=== PATIENT | female | born 1930 | race Caucasian/White ===

== ENCOUNTER 2017-09-21 17:13 | Emergency (ER) | payer MEDICARE ==
[2017-09-21 18:26] LABS: ADD MAN DIFF? NO
[2017-09-21 18:28] LABS: BASO # 0.1 x10^3/uL (0.0-0.2); BASO % 1 % (0-3); EOS # 0.2 x10^3/uL (0.0-0.7); EOS % 3 % (0-3); HEMATOCRIT 38.7 % (36.0-47.0); LYMPH # 2.6 x10^3/uL (1.0-4.8); LYMPH % 33 % (24-48); MEAN CORPUSCULAR HEMOGLOBIN 30 pg (25-35); MEAN CORPUSCULAR HGB CONC 34 g/dL (31-37); MEAN CORPUSCULAR VOLUME 91 fL (79-100); MONO # 0.9 x10^3/uL (0.0-1.1); MONO % 12 % (0-9); NEUT # 3.9 x10^3uL (1.8-7.7); NEUT % 51 % (31-73); PLATELET COUNT 212 x10^3/uL (140-400); RED BLOOD COUNT 4.26 x10^6/uL (3.50-5.40); RED CELL DISTRIBUTION WIDTH 13.8 % (11.5-14.5); WHITE BLOOD COUNT 7.8 x10^3/uL (4.0-11.0)
[2017-09-21 18:37] LABS: ANION GAP 9 (6-14); BLOOD UREA NITROGEN 21 mg/dL (7-20); CALCIUM 9.4 mg/dL (8.5-10.1); CARBON DIOXIDE 29 mmol/L (21-32); CHLORIDE 104 mmol/L (98-107); CREATININE 1.2 mg/dL (0.6-1.0); GFR 42.4; GLUCOSE 116 mg/dL (70-99); POTASSIUM 3.8 mmol/L (3.5-5.1); SODIUM 142 mmol/L (136-145)
[2017-09-21] MEDS: LABETALOL 20 MG/4 ML DISP.SYRIN. IVP (18:37)
[2017-09-21 18:45] LABS: TROPONINI < 0.017 ng/mL (0.000-0.055)
[2017-09-21 18:45] LABS: ALBUMIN 3.6 g/dL (3.4-5.0); ALK PHOS 83 U/L (46-116); ALT (SGPT) 18 U/L (14-59); AST (SGOT) 20 U/L (15-37); DIRECT BILIRUBIN 0.1 mg/dL (0.0-0.2); LIPASE 78 U/L (73-393); TOTAL BILIRUBIN 0.4 mg/dL (0.2-1.0); TOTAL PROTEIN 6.9 g/dL (6.4-8.2)
[2017-09-21 18:48] LABS: NT-PRO BNP 536 pg/mL (0-449)
[2017-09-21 19:02] LABS: BILIRUBIN,URINE NEGATIVE (NEG); CLARITY,URINE CLEAR; COLOR,URINE YELLOW; GLUCOSE,URINE NEGATIVE (NEG); NITRITE,URINE NEGATIVE (NEG); PH,URINE 6.5; PROTEIN,URINE NEGATIVE (NEG-TRACE); UROBILINOGEN,URINE 0.2 mg/dL (0.2 mg/dL)
[2017-09-21 19:10] LABS: BACTERIA,URINE 0 /HPF (0-FEW); RBC,URINE 0 /HPF (0-2); SQUAMOUS EPITHELIAL CELL,UR OCC /LPF; WBC,URINE 0 /HPF (0-4)
[2017-09-21 19:59] LABS: LACTIC ACID 1.5 mmol/L (0.4-2.0)
[2017-09-21] MEDS: LISINOPRIL 10 MG TABLET PO (20:35)
== END 2017-09-21 20:48 | disposition home or self-care (01) ==
LOC: ER 17:13
DX: I10 Essential (primary) hypertension (principal); E78.00 Pure hypercholesterolemia, unspecified; Z86.73 Personal history of transient ischemic attack (TIA), and cerebral infarction without residual deficits; Z98.890 Other specified postprocedural states
CPT/HCPCS: 36415; 80048; 80076; 81001; 83605; 83690; 83880; 84484; 85025; 93005; 96374; 99285-25; J3490

== ENCOUNTER 2017-12-24 10:36 | Inpatient (IN) | payer MEDICARE ==
[~2017-12-24] VITALS: Ht 154.9 cm; Wt 73.9 kg
[~2017-12-24 10:36] MED LIST: ALPR0.25 PO; ASPI-612 PO; DILT120C80 PO; DILT240C2 PO; LEVO500T59 PO; LISI10TA2 PO; OLME1TAB25 PO; POLY17PO29 PO; RANI150T2 PO; RANI150T21 PO; SIMV20TA3 PO
[2017-12-24] MEDS ORDERED: IV NORMAL SALINE 500ML BAG 500 ML IV ONE ×2 (11:00→12:15)
--- NOTE | 2017-12-24 11:15 | RAD ---
Chest AP portable at 1059: Reason for examination: Dizziness and shortness of breath today. Comparison is made to previous studies dated 11/03/2017 and 09/11/2017. The heart size is normal. Mediastinum is unremarkable. Lung woodruff continue show some mild interstitial prominence which is unchanged. No acute consolidative infiltrates or pleural effusions are evident. No acute bony abnormalities are seen. Impression: Chronic increase in the interstitial markings. No acute process evident. Electronically signed by: Rosaura Montes MD (12/24/2017 11:11 AM) [facility]
[2017-12-24 11:26] LABS: BASO # 0.1 x10^3/uL (0.0-0.2); BASO % 1 % (0-3); EOS # 0.2 x10^3/uL (0.0-0.7); EOS % 2 % (0-3); HEMATOCRIT 41.3 % (36.0-47.0); HEMOGLOBIN 13.8 g/dL (12.0-15.5); LYMPH # 1.7 x10^3/uL (1.0-4.8); LYMPH % 19 % (24-48); MEAN CORPUSCULAR HEMOGLOBIN 31 pg (25-35); MEAN CORPUSCULAR HGB CONC 34 g/dL (31-37); MEAN CORPUSCULAR VOLUME 91 fL (79-100); MONO # 0.8 x10^3/uL (0.0-1.1); MONO % 9 % (0-9); NEUT # 6.1 x10^3uL (1.8-7.7); NEUT % 70 % (31-73); PLATELET COUNT 218 x10^3/uL (140-400); RED BLOOD COUNT 4.55 x10^6/uL (3.50-5.40); RED CELL DISTRIBUTION WIDTH 13.8 % (11.5-14.5); WHITE BLOOD COUNT 8.8 x10^3/uL (4.0-11.0)
--- NOTE | 2017-12-24 11:28 | PHYS DOC ---
Past Medical History Past Medical History: High Cholesterol, Hypertension, TIA Past Surgical History: Other Additional Past Surgical Histo: left lobe thyroid, lumps bilateral breasts Alcohol Use: None Drug Use: None Adult General Chief Complaint Chief Complaint: NEAR SYNCOPE HPI HPI Patient is a 87 year old female who presents with weakness and dizziness. The patient is an elderly female who lives by herself. The patient states she was recently admitted at [facility] for pneumonia. She estimates this to be 4 weeks earlier. She completed antibiotics following discharge from the hospital. Today, she presents to the ER complaining that she awoke this morning and felt generally weak and had some dizziness. She felt that she might pass out but she did not actually have a syncopal episode. Based on her feelings, the patient called EMS. On arrival to the ER she continues to complain of feeling "shaky." She states that she feels lightheaded still. She denies vertiginous symptoms. She complains of some intermittent shortness of breath. She does not have chest pain. She states she has been eating and drinking normally and having normal bowel movements. No recent additional respiratory symptoms. Review of Systems Review of Systems Constitutional: Denies fever or chills Eyes: Denies change in visual acuity HENT: Denies nasal congestion Respiratory: Denies cough Cardiovascular: No additional information not addressed in HPI GI: Denies abdominal pain Musculoskeletal: Denies back pain or joint pain Integument: Denies rash or skin lesions Neurologic: Denies headache, focal weakness or sensory changes All other systems were reviewed and found to be within normal limits, except as documented in this note. Current Medications Current Medications Current Medications Medications (Trade) Dose Ordered Sig/Leon Start Time Stop Time Status Last Admin Dose Admin Acetaminophen (Tylenol) 650 mg PRN Q4HRS PRN 12/24/17 14:15 12/25/17 14:14 Sodium Chloride 500 ml @ 250 mls/hr 1X ONCE 12/24/17 12:15 12/24/17 14:14 DC 12/24/17 12:45 250 MLS/HR Allergies Allergies Allergies Coded Allergies Type Severity Reaction Last Updated Verified hydralazine Allergy Intermediate Swelling 12/24/17 Yes nifedipine Allergy Intermediate Swelling 12/24/17 Yes Physical Exam Physical Exam Constitutional: frail, elderly female in no acute distress HENT: Normocephalic, atraumatic, bilateral external ears normal, oropharynx moist Eyes: PERRLA, EOMI, conjunctiva conjunctiva Neck: Normal range of motion, no tenderness, no carotid bruits Cardiovascular:Heart rate regular rhythm, no murmur Lungs & Thorax: Bilateral breath sounds clear to auscultation Abdomen: Bowel sounds normal, soft, no tenderness Skin: Warm, dry, no erythema, no rash. Extremities: No tenderness, no edema Neurologic: Alert and oriented X 3, normal motor function, normal sensory function Psychologic: Affect normal Current Patient Data Vital Signs Vital Signs Date Time Temp Pulse Resp B/P (MAP) Pulse Ox O2 Delivery O2 Flow Rate FiO2 12/24/17 10:45 97.9 75 22 191/77 (115) 99 Room Air 97.9 Lab Values Laboratory Tests Test 12/24/17 11:10 12/24/17 12:26 White Blood Count 8.8 x10^3/uL (4.0-11.0) Red Blood Count 4.55 x10^6/uL (3.50-5.40) Hemoglobin 13.8 g/dL (12.0-15.5) Hematocrit 41.3 % (36.0-47.0) Mean Corpuscular Volume 91 fL (79-100) Mean Corpuscular Hemoglobin 31 pg (25-35) Mean Corpuscular Hemoglobin Concent 34 g/dL (31-37) Red Cell Distribution Width 13.8 % (11.5-14.5) Platelet Count 218 x10^3/uL (140-400) Neutrophils (%) (Auto) 70 % (31-73) Lymphocytes (%) (Auto) 19 % (24-48) L Monocytes (%) (Auto) 9 % (0-9) Eosinophils (%) (Auto) 2 % (0-3) Basophils (%) (Auto) 1 % (0-3) Neutrophils # (Auto) 6.1 x10^3uL (1.8-7.7) Lymphocytes # (Auto) 1.7 x10^3/uL (1.0-4.8) Monocytes # (Auto) 0.8 x10^3/uL (0.0-1.1) Eosinophils # (Auto) 0.2 x10^3/uL (0.0-0.7) Basophils # (Auto) 0.1 x10^3/uL (0.0-0.2) Sodium Level 138 mmol/L (136-145) Potassium Level 4.0 mmol/L (3.5-5.1) Chloride Level 101 mmol/L (98-107) Carbon Dioxide Level 31 mmol/L (21-32) Anion Gap 6 (6-14) Blood Urea Nitrogen 24 mg/dL (7-20) H Creatinine 1.3 mg/dL (0.6-1.0) H Estimated GFR (Cockcroft-Gault) 38.7 Glucose Level 170 mg/dL (70-99) H Calcium Level 9.3 mg/dL (8.5-10.1) Troponin I Quantitative < 0.017 ng/mL (0.000-0.055) Urine Collection Type Unknown Urine Color Yellow Urine Clarity Clear Urine pH 6.0 Urine Specific [place] 1.010 Urine Protein Negative mg/dL (NEG-TRACE) Urine Glucose (UA) Negative mg/dL (NEG) Urine Ketones (Stick) Negative mg/dL (NEG) Urine Blood Negative (NEG) Urine Nitrite Negative (NEG) Urine Bilirubin Negative (NEG) Urine Urobilinogen Dipstick 0.2 mg/dL (0.2 mg/dL) Urine Leukocyte Esterase Negative (NEG) Urine RBC 0 /HPF (0-2) Urine WBC 0 /HPF (0-4) Urine Squamous Epithelial Cells Few /LPF Urine Bacteria 0 /HPF (0-FEW) Laboratory Tests 12/24/17 11:10 Laboratory Tests 12/24/17 11:10 EKG EKG No STEMI Interpretation Time: 10:55 Radiology/Procedures Radiology/Procedures Reason for examination: Dizziness and shortness of breath today. Comparison is made to previous studies dated 11/03/2017 and 09/11/2017. The heart size is normal. Mediastinum is unremarkable. Lung woodruff continue show some mild interstitial prominence which is unchanged. No acute consolidative infiltrates or pleural effusions are evident. No acute bony abnormalities are seen. Impression: Chronic increase in the interstitial markings. No acute process evident. Course & Med Decision Making Course & Med Decision Making Pertinent Labs and Imaging studies reviewed. (See chart for details) Patient is seen and examined on arrival to her room. She has no acute distress. She complains of feeling shaky and intermittently does have tremulous movements in the upper extremities but these seem to resolve when the patient is distracted. She complains intermittently also of some shortness of breath but her lungs are clear with good air movement in all woodruff. Her oxygen saturation is 99% on room air. We will check basic labs. The patient does not have any more focal complaints today other than feeling generally weak and dizzy. 12:10: All results are reviewed. There are no acute findings to explain the patient's symptoms. She is now status post 500 mL of normal saline. The patient reports she is feeling much improved. Plan is to give another small fluid bolus and road test. 13:40: All results are reviewed. The patient's workup does not reveal any acute cause for her symptoms. She has a daughter at the bedside. The daughter states the patient has been fully evaluated for these weakness and dizziness episodes over the course of the last year. She has had multiple hospital admissions. According to the family, there has been no acute cause found for her symptoms. She was given 1 L total of IV fluid in the emergency department. She was ambulated to the restroom but patient stated she continued to have symptoms. She felt that she would fall down. She was unable to ambulate without assistance of nursing staff. The patient does still live at her house and does not have immediate care available. Patient does not feel safe for discharge home today. Patient will be admitted to the hospital for further evaluation. Discussed with Dr. Bravo who will admit. Cayden Disclaimer Cayden Disclaimer This electronic medical record was generated, in whole or in part, using a voice recognition dictation system. Departure Departure Referrals: EDITH FLORES MD (PCP) NADER CORBIN DO Dec 24, 2017 11:28
[2017-12-24 11:32] LABS: CALCIUM 9.3 mg/dL (8.5-10.1); CREATININE 1.3 mg/dL (0.6-1.0); GFR 38.7
--- NOTE | 2017-12-24 11:46 | EKG ---
[facility] [address] [place] [address] Test Date: 2017-12-24 Test Time: 10:51:39 Pat Name: ZARA HERNÁNDEZ Department: Room: Gender: F Transfer Driver: : [id number] Requested By: NADER CORBIN Order Number: [id number] Reading MD: Simba Iqbal MD Measurements Intervals [place] Rate: 68 P: [place]: QRS: -5 QRSD: 84 T: 36 QT: 388 QTc: 413 Interpretive Statements SR Electronically Signed On 12-25-2017 10:07:26 CDT by Simba Iqbal MD
[2017-12-24 12:36] LABS: BILIRUBIN,URINE NEGATIVE (NEG); CLARITY,URINE CLEAR; COLOR,URINE YELLOW; NITRITE,URINE NEGATIVE (NEG); PROTEIN,URINE NEGATIVE (NEG-TRACE); UROBILINOGEN,URINE 0.2 mg/dL (0.2 mg/dL)
[2017-12-24 12:42] LABS: BACTERIA,URINE 0 /HPF (0-FEW); RBC,URINE 0 /HPF (0-2); SQUAMOUS EPITHELIAL CELL,UR FEW /LPF; WBC,URINE 0 /HPF (0-4)
[2017-12-24] MEDS ORDERED: ACETAMINOPHEN 325 MG TABLET. PO PRN (14:15)
[2017-12-24 15:20] VITALS: BP 185/71
[2017-12-24] MEDS ORDERED: CLON0.1T PO (17:09)
[2017-12-24] MEDS ORDERED: LORA0.5T PO (17:09)
[2017-12-24] MEDS ORDERED: FURO20TA3 PO (17:09)
[2017-12-24] MEDS ORDERED: BUSP5TAB PO (17:09)
[2017-12-24] MEDS ORDERED: LOSA50TA6 PO (17:09)
[2017-12-24] MEDS ORDERED: ASPI81TA50 PO (17:09)
[2017-12-24] MEDS ORDERED: SIMV20TA3 PO (17:09)
[2017-12-24] MEDS ORDERED: cloNIDine HCL 0.1 MG TABLET PO PRN (18:15)
[2017-12-24] MEDS ORDERED: busPIRone 5 MG TABLET. PO PRN (18:15)
[2017-12-24] MEDS ORDERED: LOSARTAN POTASSIUM 50 MG TABLET. PO ONE (18:15)
[2017-12-24] MEDS: LOSARTAN POTASSIUM 50 MG TABLET. PO SCH (18:18)
--- NOTE | 2017-12-24 18:53 | HP ---
ADMIT DATE: 12/24/2017 CHIEF COMPLAINT: Weakness. HISTORY OF PRESENT ILLNESS: The patient is a pleasant 87-year-old female, well known to our service. She has been in the hospital over at [facility] in the past few weeks. She had pneumonia then. Today she has been very weak. She stood up, she was kind of dizzy. She had some associated anxiety. The patient came to the ER for evaluation. We noted that she has a BUN of 24 and creatinine of 1.3, glucose is 170. She is quite debilitated. We tried a walker. She could not stand up. We are going to admit the patient and do some physical therapy, occupational therapy and probably and give her IV fluids and get her to rehabilitation. PAST MEDICAL HISTORY: Hyperlipidemia, recent pneumonia, hypertension, breast lumpectomy, GERD, left thyroid nodule. ALLERGIES: NIFEDIPINE AND HYDRALAZINE. FAMILY HISTORY: Hypertension. SOCIAL HISTORY: She lives alone. She does not drink, smoke or take drugs. MEDICATIONS: Reviewed, please refer to the MRAD. REVIEW OF SYSTEMS: GENERAL: She complains of weakness. SKIN: No bruising, hair changes or rashes. EYES: No blurred, double or loss of vision. NOSE AND THROAT: No history of nosebleeds, hoarseness or sore throat. HEART: No history of palpitations, chest pain or shortness of breath on exertion. LUNGS: Denies cough, hemoptysis, wheezing or shortness of breath. GASTROINTESTINAL: Denies changes in appetite, nausea, vomiting, diarrhea or constipation. GENITOURINARY: No history of frequency, urgency, hesitancy or nocturia. NEUROLOGIC: She complains of dizziness. PSYCHIATRIC: No history of panic, anxiety or depression. ENDOCRINE: No history of heat or cold intolerance, polyuria or polydipsia. EXTREMITIES: Denies muscle weakness, joint pain, pain on walking or stiffness. PHYSICAL EXAMINATION: VITAL SIGNS: Temperature afebrile, pulse 100, respirations 18, blood pressure ranging from 140-160 systolic. HEART: Distant S1, S2. LUNGS: Clear. ABDOMEN: Soft. EXTREMITIES: Trace edema. SKIN: No rashes. ENDOCRINE: No thyromegaly. LYMPHATICS: No cervical nodes. HEMATOPOIETIC: No bruising. NEUROLOGICAL: She is quite weak, but alert. LABORATORY DATA: BUN is 24, creatinine 1.3, glucose 107. ASSESSMENT AND PLAN: Dehydration and weakness in an elderly female who had recent pneumonia. Suspect she could be developing early failure to thrive as well. We will go ahead and admit the patient, give her IV fluids, physical therapy and occupational therapy, social worker psychiatric for possible long-term care or skilled or both. LONG-TERM PROGNOSIS: Guarded. SRIRAM GROSSMAN DO DR: LELAND/jodie JOB#: [id number] / [id number]
[2017-12-24 19:00] VITALS: BP 141/65
[2017-12-24] MEDS: LORazepam 0.5 MG TABLET PO SCH (20:10)
[2017-12-24] MEDS: ONDANSETRON PF 4 MG/2 ML VIAL. IV PRN (20:10)
[2017-12-24] MEDS: SIMVASTATIN 20 MG TABLET PO SCH (20:10)
[2017-12-24 23:00] VITALS: BP 135/64
[2017-12-25] VITALS (9 sets, daily range): BP systolic 115–170; BP diastolic 42–78
[2017-12-25 05:46] LABS: CALCIUM 9.3 mg/dL (8.5-10.1); CREATININE 1.2 mg/dL (0.6-1.0); GFR 42.4; POTASSIUM 4.2 mmol/L (3.5-5.1)
[2017-12-25] MEDS: ONDANSETRON PF 4 MG/2 ML VIAL. IV PRN ×2 (06:20→20:36)
[2017-12-25 08:00] LABS: BASO # 0.1 x10^3/uL (0.0-0.2); BASO % 1 % (0-3); EOS # 0.3 x10^3/uL (0.0-0.7); EOS % 4 % (0-3); HEMATOCRIT 38.6 % (36.0-47.0); LYMPH # 2.5 x10^3/uL (1.0-4.8); LYMPH % 32 % (24-48); MEAN CORPUSCULAR HEMOGLOBIN 31 pg (25-35); MEAN CORPUSCULAR HGB CONC 34 g/dL (31-37); MEAN CORPUSCULAR VOLUME 91 fL (79-100); MONO # 0.9 x10^3/uL (0.0-1.1); MONO % 12 % (0-9); NEUT # 3.9 x10^3uL (1.8-7.7); NEUT % 51 % (31-73); PLATELET COUNT 196 x10^3/uL (140-400); RED BLOOD COUNT 4.25 x10^6/uL (3.50-5.40); RED CELL DISTRIBUTION WIDTH 13.9 % (11.5-14.5); WHITE BLOOD COUNT 7.6 x10^3/uL (4.0-11.0)
[2017-12-25] MEDS: ASPIRIN ENTERIC COATED 81 MG TABLET.DR. PO SCH ×2 (09:06→16:57)
[2017-12-25] MEDS: FUROSEMIDE 20 MG TABLET PO SCH (09:06)
[2017-12-25] MEDS: FAMOTIDINE 20 MG TABLET. PO SCH (09:06)
[2017-12-25] MEDS: LOSARTAN POTASSIUM 50 MG TABLET. PO SCH ×2 (09:07→16:57)
--- NOTE | 2017-12-25 11:13 | PDOC ---
PROGRESS NOTES Chief Complaint Chief Complaint accelerated hypertensino weakness and debility Dehydration weakness and debility recent pneumonia. History of Present Illness History of Present Illness weakness this AM feels better than last night homemeds, IV fluid PT and OT eval today consult CV, she has seen. Dr. Iqbal before Vitals Vitals Vital Signs Date Time Temp Pulse Resp B/P (MAP) Pulse Ox O2 Delivery O2 Flow Rate FiO2 12/25/17 09:32 75 118/54 (75) 12/25/17 08:30 Room Air 12/25/17 06:44 97.5 16 93 97.5 Physical Exam General: Alert, Cooperative, No acute distress Heart: Regular rate, Normal S1, No murmurs Abdomen: No hepatosplenomegaly Extremities: No cyanosis, Normal pulses Labs LABS Laboratory Tests Test 12/24/17 12:26 12/25/17 04:30 12/25/17 07:30 Urine Collection Type Unknown Urine Color Yellow Urine Clarity Clear Urine pH 6.0 Urine Specific [place] 1.010 Urine Protein Negative mg/dL (NEG-TRACE) Urine Glucose (UA) Negative mg/dL (NEG) Urine Ketones (Stick) Negative mg/dL (NEG) Urine Blood Negative (NEG) Urine Nitrite Negative (NEG) Urine Bilirubin Negative (NEG) Urine Urobilinogen Dipstick 0.2 mg/dL (0.2 mg/dL) Urine Leukocyte Esterase Negative (NEG) Urine RBC 0 /HPF (0-2) Urine WBC 0 /HPF (0-4) Urine Squamous Epithelial Cells Few /LPF Urine Bacteria 0 /HPF (0-FEW) Sodium Level 143 mmol/L (136-145) Potassium Level 4.2 mmol/L (3.5-5.1) Chloride Level 106 mmol/L (98-107) Carbon Dioxide Level 32 mmol/L (21-32) Anion Gap 5 (6-14) Blood Urea Nitrogen 16 mg/dL (7-20) Creatinine 1.2 mg/dL (0.6-1.0) Estimated GFR (Cockcroft-Gault) 42.4 Glucose Level 87 mg/dL (70-99) Calcium Level 9.3 mg/dL (8.5-10.1) White Blood Count 7.6 x10^3/uL (4.0-11.0) Red Blood Count 4.25 x10^6/uL (3.50-5.40) Hemoglobin 13.0 g/dL (12.0-15.5) Hematocrit 38.6 % (36.0-47.0) Mean Corpuscular Volume 91 fL (79-100) Mean Corpuscular Hemoglobin 31 pg (25-35) Mean Corpuscular Hemoglobin Concent 34 g/dL (31-37) Red Cell Distribution Width 13.9 % (11.5-14.5) Platelet Count 196 x10^3/uL (140-400) Neutrophils (%) (Auto) 51 % (31-73) Lymphocytes (%) (Auto) 32 % (24-48) Monocytes (%) (Auto) 12 % (0-9) Eosinophils (%) (Auto) 4 % (0-3) Basophils (%) (Auto) 1 % (0-3) Neutrophils # (Auto) 3.9 x10^3uL (1.8-7.7) Lymphocytes # (Auto) 2.5 x10^3/uL (1.0-4.8) Monocytes # (Auto) 0.9 x10^3/uL (0.0-1.1) Eosinophils # (Auto) 0.3 x10^3/uL (0.0-0.7) Basophils # (Auto) 0.1 x10^3/uL (0.0-0.2) Review of Systems Review of Systems last night, abd pain, anxiety, hypertension and tremor in an "event" like prior Comment Review of Relevant I have reviewed the following items adwoa (where applicable) has been applied. Labs Laboratory Tests Test 12/24/17 11:10 12/24/17 12:26 12/25/17 04:30 12/25/17 07:30 White Blood Count 8.8 x10^3/uL (4.0-11.0) 7.6 x10^3/uL (4.0-11.0) Red Blood Count 4.55 x10^6/uL (3.50-5.40) 4.25 x10^6/uL (3.50-5.40) Hemoglobin 13.8 g/dL (12.0-15.5) 13.0 g/dL (12.0-15.5) Hematocrit 41.3 % (36.0-47.0) 38.6 % (36.0-47.0) Mean Corpuscular Volume 91 fL (79-100) 91 fL (79-100) Mean Corpuscular Hemoglobin 31 pg (25-35) 31 pg (25-35) Mean Corpuscular Hemoglobin Concent 34 g/dL (31-37) 34 g/dL (31-37) Red Cell Distribution Width 13.8 % (11.5-14.5) 13.9 % (11.5-14.5) Platelet Count 218 x10^3/uL (140-400) 196 x10^3/uL (140-400) Neutrophils (%) (Auto) 70 % (31-73) 51 % (31-73) Lymphocytes (%) (Auto) 19 % (24-48) 32 % (24-48) Monocytes (%) (Auto) 9 % (0-9) 12 % (0-9) Eosinophils (%) (Auto) 2 % (0-3) 4 % (0-3) Basophils (%) (Auto) 1 % (0-3) 1 % (0-3) Neutrophils # (Auto) 6.1 x10^3uL (1.8-7.7) 3.9 x10^3uL (1.8-7.7) Lymphocytes # (Auto) 1.7 x10^3/uL (1.0-4.8) 2.5 x10^3/uL (1.0-4.8) Monocytes # (Auto) 0.8 x10^3/uL (0.0-1.1) 0.9 x10^3/uL (0.0-1.1) Eosinophils # (Auto) 0.2 x10^3/uL (0.0-0.7) 0.3 x10^3/uL (0.0-0.7) Basophils # (Auto) 0.1 x10^3/uL (0.0-0.2) 0.1 x10^3/uL (0.0-0.2) Sodium Level 138 mmol/L (136-145) 143 mmol/L (136-145) Potassium Level 4.0 mmol/L (3.5-5.1) 4.2 mmol/L (3.5-5.1) Chloride Level 101 mmol/L (98-107) 106 mmol/L (98-107) Carbon Dioxide Level 31 mmol/L (21-32) 32 mmol/L (21-32) Anion Gap 6 (6-14) 5 (6-14) Blood Urea Nitrogen 24 mg/dL (7-20) 16 mg/dL (7-20) Creatinine 1.3 mg/dL (0.6-1.0) 1.2 mg/dL (0.6-1.0) Estimated GFR (Cockcroft-Gault) 38.7 42.4 Glucose Level 170 mg/dL (70-99) 87 mg/dL (70-99) Calcium Level 9.3 mg/dL (8.5-10.1) 9.3 mg/dL (8.5-10.1) Troponin I Quantitative < 0.017 ng/mL (0.000-0.055) Urine Collection Type Unknown Urine Color Yellow Urine Clarity Clear Urine pH 6.0 Urine Specific [place] 1.010 Urine Protein Negative mg/dL (NEG-TRACE) Urine Glucose (UA) Negative mg/dL (NEG) Urine Ketones (Stick) Negative mg/dL (NEG) Urine Blood Negative (NEG) Urine Nitrite Negative (NEG) Urine Bilirubin Negative (NEG) Urine Urobilinogen Dipstick 0.2 mg/dL (0.2 mg/dL) Urine Leukocyte Esterase Negative (NEG) Urine RBC 0 /HPF (0-2) Urine WBC 0 /HPF (0-4) Urine Squamous Epithelial Cells Few /LPF Urine Bacteria 0 /HPF (0-FEW) Laboratory Tests Test 12/24/17 12:26 12/25/17 04:30 12/25/17 07:30 Urine Collection Type Unknown Urine Color Yellow Urine Clarity Clear Urine pH 6.0 Urine Specific [place] 1.010 Urine Protein Negative mg/dL (NEG-TRACE) Urine Glucose (UA) Negative mg/dL (NEG) Urine Ketones (Stick) Negative mg/dL (NEG) Urine Blood Negative (NEG) Urine Nitrite Negative (NEG) Urine Bilirubin Negative (NEG) Urine Urobilinogen Dipstick 0.2 mg/dL (0.2 mg/dL) Urine Leukocyte Esterase Negative (NEG) Urine RBC 0 /HPF (0-2) Urine WBC 0 /HPF (0-4) Urine Squamous Epithelial Cells Few /LPF Urine Bacteria 0 /HPF (0-FEW) Sodium Level 143 mmol/L (136-145) Potassium Level 4.2 mmol/L (3.5-5.1) Chloride Level 106 mmol/L (98-107) Carbon Dioxide Level 32 mmol/L (21-32) Anion Gap 5 (6-14) Blood Urea Nitrogen 16 mg/dL (7-20) Creatinine 1.2 mg/dL (0.6-1.0) Estimated GFR (Cockcroft-Gault) 42.4 Glucose Level 87 mg/dL (70-99) Calcium Level 9.3 mg/dL (8.5-10.1) White Blood Count 7.6 x10^3/uL (4.0-11.0) Red Blood Count 4.25 x10^6/uL (3.50-5.40) Hemoglobin 13.0 g/dL (12.0-15.5) Hematocrit 38.6 % (36.0-47.0) Mean Corpuscular Volume 91 fL (79-100) Mean Corpuscular Hemoglobin 31 pg (25-35) Mean Corpuscular Hemoglobin Concent 34 g/dL (31-37) Red Cell Distribution Width 13.9 % (11.5-14.5) Platelet Count 196 x10^3/uL (140-400) Neutrophils (%) (Auto) 51 % (31-73) Lymphocytes (%) (Auto) 32 % (24-48) Monocytes (%) (Auto) 12 % (0-9) Eosinophils (%) (Auto) 4 % (0-3) Basophils (%) (Auto) 1 % (0-3) Neutrophils # (Auto) 3.9 x10^3uL (1.8-7.7) Lymphocytes # (Auto) 2.5 x10^3/uL (1.0-4.8) Monocytes # (Auto) 0.9 x10^3/uL (0.0-1.1) Eosinophils # (Auto) 0.3 x10^3/uL (0.0-0.7) Basophils # (Auto) 0.1 x10^3/uL (0.0-0.2) Medications Current Medications Sodium Chloride 500 ml @ 500 mls/hr 1X ONCE IV Last administered on at 11:17; Start 12/24/17 at 11:00; Stop 12/24/17 at 11:59; Status DC Sodium Chloride 500 ml @ 250 mls/hr 1X ONCE IV Last administered on at 12:45; Start 12/24/17 at 12:15; Stop 12/24/17 at 14:14; Status DC Acetaminophen (Tylenol) 650 mg PRN Q4HRS PRN PO FEVER; Start 12/24/17 at 14:15 ; Stop 12/25/17 at 14:14 Aspirin (Ecotrin) 162 mg BIDWMEALS PO Last administered on 12/25/17at 09:06; Start 12/25/17 at 08:00 Buspirone HCl (Buspar) 5 mg PRN BID PRN PO ANXIETY / AGITATION; Start 12/24/17 at 18:15 Clonidine HCl (Catapres) 0.1 mg PRN DAILY PRN PO HYPERTENSION, SEE COMMENTS Last administered on 12/24/17at 20:10; Start 12/24/17 at 18:15 Diltiazem HCl (Cardizem 24hr Cd) 120 mg QHS PO Last administered on 12/24/17at 20:10; Start 12/24/17 at 21:00 Furosemide (Lasix) 20 mg DAILY PO Last administered on 12/25/17at 09:06; Start 12/25/17 at 09:00 Lorazepam (Ativan) 0.5 mg HS PO Last administered on 12/24/17at 20:10; Start at 21:00 Losartan Potassium (Cozaar) 50 mg BID94 PO Last administered on 12/25/17at 09:07 ; Start 12/24/17 at 18:30 Famotidine (Pepcid) 20 mg DAILY PO Last administered on 12/25/17at 09:06; Start 12/25/17 at 09:00 Simvastatin (Zocor) 20 mg HS PO Last administered on 12/24/17at 20:10; Start at 21:00 Losartan Potassium (Cozaar) 50 mg 1X ONCE PO ; Start 12/24/17 at 18:15; Stop at 18:16; Status UNV Ondansetron HCl (Zofran) 4 mg PRN Q6HRS PRN IV NAUSEA/VOMITING Last administered on 12/25/17at 06:20; Start 12/24/17 at 20:00 Active Scripts Active Diltiazem 24HR Cd (Diltiazem Hcl) 120 Mg Cap.er.24h 120 Mg PO QHS 30 Days Reported Clonidine Hcl 0.1 Mg Tablet 0.1 Mg PO PRN PRN Lorazepam 0.5 Mg Tablet 0.5 Mg PO HS Simvastatin 20 Mg Tablet 20 Mg PO HS Losartan Potassium 50 Mg Tablet 50 Mg PO [id number] Furosemide 20 Mg Tablet 1 Tab PO DAILY Buspirone Hcl 5 Mg Tablet 5 Mg PO BID PRN Aspir-Low (Aspirin) 81 Mg Tablet. 2 Tab PO BIDWMEALS Zantac (Ranitidine Hcl) 150 Mg Tablet 150 Mg PO BID Vitals/I & O Vital Sign - Last 24 Hours 12/24/17 12/24/17 12/24/17 12/24/17 11:14 11:44 12:14 12:44 Pulse 64 64 62 62 Pulse Ox 99 97 98 98 12/24/17 12/24/17 12/24/17 12/24/17 13:14 13:44 14:18 14:44 Pulse 56 60 80 58 Pulse Ox 99 99 98 98 12/24/17 12/24/17 12/24/17 12/24/17 15:20 18:18 19:00 20:10 Temp 96.4 97.9 96.4 97.9 Pulse 61 61 65 78 Resp 16 16 B/P (MAP) 185/71 (109) 185/71 141/65 (90) 201/92 Pulse Ox 97 96 O2 Delivery Room Air Room Air 12/24/17 12/24/17 12/25/17 12/25/17 20:10 23:00 03:00 06:44 Temp 98.6 97.9 97.5 98.6 97.9 97.5 Pulse 78 71 61 72 Resp 16 16 16 B/P (MAP) 201/92 135/64 (87) 139/63 (88) 169/71 (103) Pulse Ox 97 96 93 O2 Delivery Room Air Room Air Room Air 12/25/17 12/25/17 12/25/17 12/25/17 08:30 09:07 09:22 09:27 Pulse 72 68 69 B/P (MAP) 169/71 115/42 (66) 141/68 (92) O2 Delivery Room Air 12/25/17 09:32 Pulse 75 B/P (MAP) 118/54 (75) Intake and Output 12/24/17 12/24/17 12/25/17 15:01 23:01 07:01 Intake Total 1000 ml Balance 1000 ml NEHA LIN MD Dec 25, 2017 11:13
--- NOTE | 2017-12-25 14:11 | PDOC2 ---
SCOTT COLLADO SUPERVISOR [employer] 12/25/17 1411: CARDIAC CONSULT DATE OF CONSULT Date of Consult DATE: 12/25/17 TIME: 14:03 REASON FOR CONSULT Reason for Consult: accl htn, intermittent REFERRING PHYSICIAN Referring Physician: Nathan SOURCE Source: Caregiver, Chart review, Patient HISTORY OF PRESENT ILLNESS HISTORY OF PRESENT ILLNESS 87 year old female with recent stay @ [facility] for pneumonia. Admitted through ER with weakness and dizziness. SPB of 191/77. Daughter reports 20# weight loss this summer and patient admits to not eating with poor appetite; but ate at least 1/2 of meals X 2 earlier today. Has been evaluated on multiple visits by this service and seen in office after event monitor which demonstrated a HR of 38-66 with isolated PACs and mild bradycardia without symptoms in early October. Orthostasis not demonstrated on measurement. Reason for Visit: HTN PAST MEDICAL HISTORY Cardiovascular: AFIB (?), HTN, Hyperlipidemia CENTRAL NERVOUS SYSTEM: TIA GI: GERD Psych: Anxiety Musculoskeletal: Osteoarthritis ENT: Sincusitis Endocrine: Other (thyroid nodule) PAST SURGICAL HISTORY Past Surgical History: Cataract Removal, Other (breast lumpectomy) FAMILY HISTORY Family History: Heart Disease, Family History Unknown SOCIAL HISTORY Lives: Alone CURRENT MEDICATIONS CURRENT MEDICATIONS Current Medications Medications (Trade) Dose Ordered Sig/Leon Route PRN Reason Start Time Stop Time Status Last Admin Dose Admin Aspirin (Ecotrin) 162 mg BIDWMEALS PO 12/25/17 08:00 12/25/17 09:06 Clonidine HCl (Catapres) 0.1 mg PRN DAILY PRN PO HYPERTENSION, SEE COMMENTS 12/24/17 18:15 12/24/17 20:10 Diltiazem HCl (Cardizem 24hr Cd) 120 mg QHS PO 12/24/17 21:00 12/24/17 20:10 Furosemide (Lasix) 20 mg DAILY PO 12/25/17 09:00 12/25/17 09:06 Lorazepam (Ativan) 0.5 mg HS PO 12/24/17 21:00 12/24/17 20:10 Losartan Potassium (Cozaar) 50 mg BID94 PO 12/24/17 18:30 12/25/17 09:07 Famotidine (Pepcid) 20 mg DAILY PO 12/25/17 09:00 12/25/17 09:06 Simvastatin (Zocor) 20 mg HS PO 12/24/17 21:00 12/24/17 20:10 Ondansetron HCl (Zofran) 4 mg PRN Q6HRS PRN IV NAUSEA/VOMITING 12/24/17 20:00 12/25/17 06:20 ALLERGIES ALLERGIES: Coded Allergies: hydralazine (Verified Allergy, Intermediate, Swelling, 12/24/17) nifedipine (Verified Allergy, Intermediate, Swelling, 12/24/17) ROS Review of System 10 point review with pertinent positives in HPI PHYSICAL EXAM General: Alert, Oriented X3, Cooperative, Other (appears stated age) HEENT: Atraumatic Lungs: Clear to auscultation Heart: Normal S1, Normal S2 Abdomen: Normal bowel sounds, Soft Extremities: No edema, Normal pulses Skin: No rashes Neuro: Normal speech Psych/Mental Status: Mental status NL, Mood NL MUSCULOSKELETAL: Osteoarthritic changes both hands VITALS VITALS Vital Signs Date Time Temp Pulse Resp B/P (MAP) Pulse Ox O2 Delivery O2 Flow Rate FiO2 12/25/17 11:00 97.7 69 16 159/68 (98) 95 Room Air 97.7 LABS Lab: Laboratory Tests Test 12/25/17 04:30 12/25/17 07:30 Sodium Level 143 mmol/L (136-145) Potassium Level 4.2 mmol/L (3.5-5.1) Chloride Level 106 mmol/L (98-107) Carbon Dioxide Level 32 mmol/L (21-32) Anion Gap 5 (6-14) Blood Urea Nitrogen 16 mg/dL (7-20) Creatinine 1.2 mg/dL (0.6-1.0) Estimated GFR (Cockcroft-Gault) 42.4 Glucose Level 87 mg/dL (70-99) Calcium Level 9.3 mg/dL (8.5-10.1) White Blood Count 7.6 x10^3/uL (4.0-11.0) Red Blood Count 4.25 x10^6/uL (3.50-5.40) Hemoglobin 13.0 g/dL (12.0-15.5) Hematocrit 38.6 % (36.0-47.0) Mean Corpuscular Volume 91 fL (79-100) Mean Corpuscular Hemoglobin 31 pg (25-35) Mean Corpuscular Hemoglobin Concent 34 g/dL (31-37) Red Cell Distribution Width 13.9 % (11.5-14.5) Platelet Count 196 x10^3/uL (140-400) Neutrophils (%) (Auto) 51 % (31-73) Lymphocytes (%) (Auto) 32 % (24-48) Monocytes (%) (Auto) 12 % (0-9) Eosinophils (%) (Auto) 4 % (0-3) Basophils (%) (Auto) 1 % (0-3) Neutrophils # (Auto) 3.9 x10^3uL (1.8-7.7) Lymphocytes # (Auto) 2.5 x10^3/uL (1.0-4.8) Monocytes # (Auto) 0.9 x10^3/uL (0.0-1.1) Eosinophils # (Auto) 0.3 x10^3/uL (0.0-0.7) Basophils # (Auto) 0.1 x10^3/uL (0.0-0.2) IMAGES IMAGES CXR: The heart size is normal. Mediastinum is unremarkable. Lung woodruff continue show some mild interstitial prominence which is unchanged. No acute consolidative infiltrates or pleural effusions are evident. No acute bony abnormalities are seen. Impression: Chronic increase in the interstitial markings. No acute process evident. EKG EKG 12/24/2017: SR ECHOCARDIOGRAM ECHOCARDIOGRAM 09/12/2017: TTE: The left ventricular systolic function is normal and the ejection fraction is within normal range. EF 65% There is normal LV segmental wall motion. STRESS TEST STRESS TEST 01/2015: MPI: 1. Regadenoson cardioisotope stress test did not show any evidence of ischemia or infarct. 2. Normal left ventricular systolic function with ejection fraction calculated at >80%. 3. Low risk for cardiovascular events. ASSESSMENT/PLAN ASSESSMENT/PLAN 1. labile HTN --treated with diltiazem and prn clonidine which may predispose her to bradycardia ----clonidine may create rebound hypertension --suspect anxiety playing into this as well --recommended changing BP meds and daughter not receptive to this 2. ? of atrial fib --none demonstrated on recent event monitor --? use of diltiazem as BP might be better treated with dihydropyridine CCB 3. failure to thrive --admits to not eating --? fluid intake; not orthostatic --may benefit from supervised living situation as eating at least 1/2 of meals here 4. anxiety 5. HLD --continue medications FE WHITE MD 12/25/17 0911: CARDIAC CONSULT ASSESSMENT/PLAN ASSESSMENT/PLAN Patient seen and examined. Agree with above nurse practitioner note. Well-known to our service. No obvious cardiac abnormalities on examination. Due to allergies to hydralazine and nifedipine we have stayed away from dihydropyridine calcium channel blockers. She has been taking clonidine a proximally 4-5 times a week for elevated blood pressures, this is likely a case of rebound hypertension. She reports extensive evaluation for her hypertension at [facility] without any obvious causes. We will plan for a renal duplex study. Obtain records from [facility] and start a clonidine patch at 0.1 mg and continue her other medications. We will follow along. SCOTT COLLADO APRN Dec 25, 2017 14:11 FE WHITE MD Dec 25, 2017 17:32
[2017-12-25] MEDS ORDERED: cloNIDine TTS-1 1 PATCH PATCH.TDWK TD SCH (16:30)
[2017-12-25] MEDS: LORazepam 0.5 MG TABLET PO SCH (21:19)
[2017-12-25] MEDS: SIMVASTATIN 20 MG TABLET PO SCH (21:20)
[2017-12-26 03:00] VITALS: BP 145/68
[2017-12-26 07:15] VITALS: BP 171/71
[2017-12-26] MEDS: ONDANSETRON PF 4 MG/2 ML VIAL. IV PRN ×2 (07:15→15:46)
--- NOTE | 2017-12-26 08:29 | RAD ---
EXAM: Loco scale and color Doppler renal artery sonogram. HISTORY: Hypertensive urgency. TECHNIQUE: Loco scale and color Doppler sonographic imaging of the kidneys and renal arteries with spectral waveform analysis was performed. COMPARISON: None. FINDINGS: The right kidney measures 7.8 cm [id number]. The left kidney measures 8.4 cm [id number]. No solid or cystic renal lesion is seen. There is no hydronephrosis. The bladder is not assessed. The peak systolic velocity within the right renal artery is 113 cm/s. The peak systolic velocity within the left renal artery is 134 cm/s. There are are normal renal artery to aorta velocity ratios. IMPRESSION: 1. No Doppler evidence of greater than 60% stenosis within the renal arteries. 2. Decreased renal size suggesting mild right greater than left renal atrophy. Electronically signed by: Sherice Caicedo MD (12/26/2017 8:26 AM) [facility]
[2017-12-26] MEDS: LOSARTAN POTASSIUM 50 MG TABLET. PO SCH ×2 (08:43→15:46)
[2017-12-26] MEDS: ASPIRIN ENTERIC COATED 81 MG TABLET.DR. PO SCH ×2 (08:44→17:17)
[2017-12-26] MEDS: FUROSEMIDE 20 MG TABLET PO SCH (08:44)
[2017-12-26] MEDS: FAMOTIDINE 20 MG TABLET. PO SCH (08:44)
[2017-12-26 11:02] VITALS: BP_SYST 118; BP_SYST 171; BP_DIAS 52; BP_DIAS 71
[2017-12-26 15:06] VITALS: BP 149/71
--- NOTE | 2017-12-26 15:07 | PDOC ---
PROGRESS NOTES Chief Complaint Chief Complaint accelerated hypertensino weakness and debility Dehydration weakness and debility recent pneumonia. History of Present Illness History of Present Illness weakness persists, out of bed well, but very weak feels better than last night homemeds, IV fluid PT and OT eval today clonidine changed to patch, will watch vitals need snu placemetn, Vitals Vitals Vital Signs Date Time Temp Pulse Resp B/P (MAP) Pulse Ox O2 Delivery O2 Flow Rate FiO2 12/26/17 11:02 98.2 77 18 118/52 (74) 97 Room Air 98.2 Physical Exam General: Alert, Oriented X3, Cooperative, Other (appears stated age) Heart: Normal S1, Normal S2 Abdomen: Normal bowel sounds, Soft Extremities: No edema, Normal pulses Skin: No rashes Comment Review of Relevant I have reviewed the following items adwoa (where applicable) has been applied. Labs Laboratory Tests Test 12/25/17 04:30 12/25/17 07:30 Sodium Level 143 mmol/L (136-145) Potassium Level 4.2 mmol/L (3.5-5.1) Chloride Level 106 mmol/L (98-107) Carbon Dioxide Level 32 mmol/L (21-32) Anion Gap 5 (6-14) Blood Urea Nitrogen 16 mg/dL (7-20) Creatinine 1.2 mg/dL (0.6-1.0) Estimated GFR (Cockcroft-Gault) 42.4 Glucose Level 87 mg/dL (70-99) Calcium Level 9.3 mg/dL (8.5-10.1) White Blood Count 7.6 x10^3/uL (4.0-11.0) Red Blood Count 4.25 x10^6/uL (3.50-5.40) Hemoglobin 13.0 g/dL (12.0-15.5) Hematocrit 38.6 % (36.0-47.0) Mean Corpuscular Volume 91 fL (79-100) Mean Corpuscular Hemoglobin 31 pg (25-35) Mean Corpuscular Hemoglobin Concent 34 g/dL (31-37) Red Cell Distribution Width 13.9 % (11.5-14.5) Platelet Count 196 x10^3/uL (140-400) Neutrophils (%) (Auto) 51 % (31-73) Lymphocytes (%) (Auto) 32 % (24-48) Monocytes (%) (Auto) 12 % (0-9) Eosinophils (%) (Auto) 4 % (0-3) Basophils (%) (Auto) 1 % (0-3) Neutrophils # (Auto) 3.9 x10^3uL (1.8-7.7) Lymphocytes # (Auto) 2.5 x10^3/uL (1.0-4.8) Monocytes # (Auto) 0.9 x10^3/uL (0.0-1.1) Eosinophils # (Auto) 0.3 x10^3/uL (0.0-0.7) Basophils # (Auto) 0.1 x10^3/uL (0.0-0.2) Medications Current Medications Sodium Chloride 500 ml @ 500 mls/hr 1X ONCE IV Last administered on at 11:17; Start 12/24/17 at 11:00; Stop 12/24/17 at 11:59; Status DC Sodium Chloride 500 ml @ 250 mls/hr 1X ONCE IV Last administered on at 12:45; Start 12/24/17 at 12:15; Stop 12/24/17 at 14:14; Status DC Acetaminophen (Tylenol) 650 mg PRN Q4HRS PRN PO FEVER; Start 12/24/17 at 14:15 ; Stop 12/25/17 at 14:14; Status DC Aspirin (Ecotrin) 162 mg BIDWMEALS PO Last administered on 12/26/17at 08:44; Start 12/25/17 at 08:00 Buspirone HCl (Buspar) 5 mg PRN BID PRN PO ANXIETY / AGITATION; Start 12/24/17 at 18:15 Clonidine HCl (Catapres) 0.1 mg PRN DAILY PRN PO HYPERTENSION, SEE COMMENTS Last administered on 12/24/17at 20:10; Start 12/24/17 at 18:15 Diltiazem HCl (Cardizem 24hr Cd) 120 mg QHS PO Last administered on 12/25/17at 20:40; Start 12/24/17 at 21:00 Furosemide (Lasix) 20 mg DAILY PO Last administered on 12/26/17at 08:44; Start 12/25/17 at 09:00 Lorazepam (Ativan) 0.5 mg HS PO Last administered on 12/25/17 21:19; Start at 21:00 Losartan Potassium (Cozaar) 50 mg BID94 PO Last administered on 12/26/17at 08:43 ; Start 12/24/17 at 18:30 Famotidine (Pepcid) 20 mg DAILY PO Last administered on 12/26/17at 08:44; Start 12/25/17 at 09:00 Simvastatin (Zocor) 20 mg HS PO Last administered on 12/25/17at 21:20; Start at 21:00 Losartan Potassium (Cozaar) 50 mg 1X ONCE PO ; Start 12/24/17 at 18:15; Stop at 18:16; Status UNV Ondansetron HCl (Zofran) 4 mg PRN Q6HRS PRN IV NAUSEA/VOMITING Last administered on 12/26/17at 07:15; Start 12/24/17 at 20:00 Clonidine HCl (Catapres Tts-1) 1 patch WEEKLY TD Last administered on at 16:58; Start 12/25/17 at 16:30 Active Scripts Active Diltiazem 24HR Cd (Diltiazem Hcl) 120 Mg Cap.er.24h 120 Mg PO QHS 30 Days Reported Clonidine Hcl 0.1 Mg Tablet 0.1 Mg PO PRN PRN Lorazepam 0.5 Mg Tablet 0.5 Mg PO HS Simvastatin 20 Mg Tablet 20 Mg PO HS Losartan Potassium 50 Mg Tablet 50 Mg PO BID94 Furosemide 20 Mg Tablet 1 Tab PO DAILY Buspirone Hcl 5 Mg Tablet 5 Mg PO BID PRN Aspir-Low (Aspirin) 81 Mg Tablet.dr 2 Tab PO BIDWMEALS Zantac (Ranitidine Hcl) 150 Mg Tablet 150 Mg PO BID Vitals/I & O Vital Sign - Last 24 Hours 12/25/17 12/25/17 12/25/17 12/25/17 16:57 19:00 20:00 20:40 Temp 98.9 98.9 Pulse 60 62 90 Resp 16 B/P (MAP) 135/78 170/62 (98) 170/62 Pulse Ox 91 O2 Delivery Room Air Room Air 12/25/17 12/26/17 12/26/17 12/26/17 23:00 03:00 07:15 08:00 Temp 98.1 98.8 98.5 98.1 98.8 98.5 Pulse 66 74 77 Resp 16 16 18 B/P (MAP) 135/64 (87) 145/68 (93) 171/71 (104) Pulse Ox 96 98 97 O2 Delivery Room Air Room Air Room Air Room Air 12/26/17 12/26/17 08:43 11:02 Temp 98.2 98.2 Pulse 77 77 Resp 18 B/P (MAP) 171/71 118/52 (74) Pulse Ox 97 O2 Delivery Room Air Intake and Output 12/25/17 12/25/17 12/26/17 15:00 23:00 07:00 Intake Total 500 ml 520 ml Balance 500 ml 520 ml NEHA LIN MD Dec 26, 2017 15:06
[2017-12-26] MEDS: POLYETHYLENE GLYCOL 3350 17 GM PACKET. PO PRN (16:05)
[2017-12-26 19:20] VITALS: BP 176/72
[2017-12-26] MEDS ORDERED: ACETAMINOPHEN 650 MG/20.3 ML SOLUTION. PO PRN (20:15)
[2017-12-26] MEDS ORDERED: ACETAMINOPHEN 325 MG TABLET. PO PRN (20:15)
[2017-12-26] MEDS: SIMVASTATIN 20 MG TABLET PO SCH (20:26)
[2017-12-26] MEDS: LORazepam 0.5 MG TABLET PO SCH (22:09)
[2017-12-26 23:13] VITALS: BP 162/74
[2017-12-27 03:12] VITALS: BP 154/72
[2017-12-27 07:00] VITALS: BP 138/77
[2017-12-27] MEDS: FUROSEMIDE 20 MG TABLET PO SCH (08:39)
[2017-12-27] MEDS: ASPIRIN ENTERIC COATED 81 MG TABLET.DR. PO SCH ×2 (08:39→17:11)
[2017-12-27] MEDS: FAMOTIDINE 20 MG TABLET. PO SCH (08:39)
[2017-12-27] MEDS: POLYETHYLENE GLYCOL 3350 17 GM PACKET. PO PRN (08:39)
[2017-12-27] MEDS: LOSARTAN POTASSIUM 50 MG TABLET. PO SCH ×2 (08:41→17:12)
[2017-12-27 11:00] VITALS: BP 152/62
--- NOTE | 2017-12-27 12:31 | PDOC ---
SCOTT COLLADO AUTO LEASING MANAGER 12/27/17 1231: CARDIO Progress Notes Date and Time Date of Service 12/27/2017 Time of Evaluation 1229 Subjective Subjective: No Chest Pain, No shortness of breath, No Palpitations, No Dizziness, Other (feeling better) Vitals Vitals Vital Signs Date Time Temp Pulse Resp B/P (MAP) Pulse Ox O2 Delivery O2 Flow Rate FiO2 12/27/17 11:00 97.7 70 18 152/62 (92) 94 Room Air 97.7 Weight Weight [ ] Input and Output Intake and Output Intake and Output 12/27/17 07:00 Intake Total 1200 ml Balance 1200 ml Intake Oral 1200 ml # Voids 6 Physical Exam HEENT: Neck Supple W Full Motion Chest: Symmetric LUNGS: Clear to Auscultation Heart: S1S2, RRR Abdomen: Soft N/T Extremities: No Edema Neurology: alert, follow commands Assessment Assessment 1. labile HTN --improving control with oral dilt and losartan; topical clonidine 2. ? of atrial fib --none demonstrated on tele 3. failure to thrive --admits to not eating prior to this admission; now eating at least 1/2 of tray --to transfer to rehab 4. anxiety 5. HLD --continue medications agreeable with transfer FE WHITE MD 12/27/17 1929: CARDIO Progress Notes Plan Plan Pt. seen and examined. Agree with above COMMUNITY DEVELOPMENT WORKER note. supportive care for now. No further med changes. BP control adequate. Will f/u in feb in the office. continue aggressive pt/ot measures. Thanks. Ok to DC in SCOTT Kellogg APRN Dec 27, 2017 12:31 FE WHITE MD Dec 27, 2017 19:29
--- NOTE | 2017-12-27 14:13 | PDOC ---
PROGRESS NOTES Chief Complaint Chief Complaint accelerated hypertension weakness and debility Dehydration weakness and debility recent pneumonia. plan: fu with card cont corrent HTn meds, on clonidine patch, losartan talked to bryant at bedside, wants to go [facility] i talked to KEITH, who will fu, plan dc tmr cont PTOT History of Present Illness History of Present Illness weakness persists, out of bed well,, walks with a walker with PT well feels better than last night homemeds clonidine changed to patch, will watch vitals need snu placemetn, Vitals Vitals Vital Signs Date Time Temp Pulse Resp B/P (MAP) Pulse Ox O2 Delivery O2 Flow Rate FiO2 12/27/17 11:00 97.7 70 18 152/62 (92) 94 Room Air 97.7 Physical Exam General: Alert, Oriented X3, Cooperative, Other (appears stated age) Heart: Normal S1, Normal S2 Lungs: Clear Abdomen: Normal bowel sounds, Soft Extremities: No edema, Normal pulses Skin: No rashes Comment Review of Relevant I have reviewed the following items adwoa (where applicable) has been applied. Medications Current Medications Sodium Chloride 500 ml @ 500 mls/hr 1X ONCE IV Last administered on at 11:17; Start 12/24/17 at 11:00; Stop 12/24/17 at 11:59; Status DC Sodium Chloride 500 ml @ 250 mls/hr 1X ONCE IV Last administered on at 12:45; Start 12/24/17 at 12:15; Stop 12/24/17 at 14:14; Status DC Acetaminophen (Tylenol) 650 mg PRN Q4HRS PRN PO FEVER; Start 12/24/17 at 14:15 ; Stop 12/25/17 at 14:14; Status DC Aspirin (Ecotrin) 162 mg BIDWMEALS PO Last administered on 12/27/17at 08:39; Start 12/25/17 at 08:00 Buspirone HCl (Buspar) 5 mg PRN BID PRN PO ANXIETY / AGITATION; Start 12/24/17 at 18:15 Clonidine HCl (Catapres) 0.1 mg PRN DAILY PRN PO HYPERTENSION, SEE COMMENTS Last administered on 12/24/17at 20:10; Start 12/24/17 at 18:15 Diltiazem HCl (Cardizem 24hr Cd) 120 mg QHS PO Last administered on 12/26/17 20:26; Start 12/24/17 at 21:00 Furosemide (Lasix) 20 mg DAILY PO Last administered on 12/27/17 08:39; Start 12/25/17 at 09:00 Lorazepam (Ativan) 0.5 mg HS PO Last administered on 12/26/17 22:09; Start at 21:00 Losartan Potassium (Cozaar) 50 mg BID94 PO Last administered on 12/27/17 08:41 ; Start 12/24/17 at 18:30 Famotidine (Pepcid) 20 mg DAILY PO Last administered on 12/27/17 08:39; Start 12/25/17 at 09:00 Simvastatin (Zocor) 20 mg HS PO Last administered on 12/26/17 20:26; Start at 21:00 Losartan Potassium (Cozaar) 50 mg 1X ONCE PO ; Start 12/24/17 at 18:15; Stop at 18:16; Status UNV Ondansetron HCl (Zofran) 4 mg PRN Q6HRS PRN IV NAUSEA/VOMITING Last administered on 12/26/17 15:46; Start 12/24/17 at 20:00 Clonidine HCl (Catapres Tts-1) 1 patch WEEKLY TD Last administered on 16:58; Start 12/25/17 at 16:30 Polyethylene Glycol (miraLAX PACKET) 17 gm PRN DAILY PRN PO CONSTIPATION Last administered on 12/27/17 08:39; Start 12/26/17 at 16:00 Acetaminophen (Tylenol) 650 mg PRN Q6HRS PRN PO MILD PAIN / TEMP; Start at 20:15 Acetaminophen (Tylenol) 325 mg PRN Q6HRS PRN PO MILD PAIN / TEMP Last administered on 12/26/17 20:25; Start 12/26/17 at 20:15 Active Scripts Active Diltiazem 24HR Cd (Diltiazem Hcl) 120 Mg Cap.er.24h 120 Mg PO QHS 30 Days Reported Clonidine Hcl 0.1 Mg Tablet 0.1 Mg PO PRN PRN Lorazepam 0.5 Mg Tablet 0.5 Mg PO HS Simvastatin 20 Mg Tablet 20 Mg PO HS Losartan Potassium 50 Mg Tablet 50 Mg PO BID94 Furosemide 20 Mg Tablet 1 Tab PO DAILY Buspirone Hcl 5 Mg Tablet 5 Mg PO BID PRN Aspir-Low (Aspirin) 81 Mg Tablet. 2 Tab PO BIDWMELANDON Zantac (Ranitidine Hcl) 150 Mg Tablet 150 Mg PO BID Vitals/I & O Vital Sign - Last 24 Hours 12/26/17 12/26/17 12/26/17 12/26/17 15:06 15:46 19:20 20:25 Temp 97.9 98.0 97.9 98.0 Pulse 69 69 61 Resp 20 18 B/P (MAP) 149/71 (97) 149/71 176/72 (106) Pulse Ox 96 95 O2 Delivery Room Air Room Air Room Air 12/26/17 12/26/17 12/27/17 12/27/17 20:26 23:13 03:12 07:00 Temp 98.3 98.4 98.0 98.3 98.4 98.0 Pulse 61 67 62 76 Resp 18 18 18 B/P (MAP) 176/72 162/74 (103) 154/72 (99) 138/77 (97) Pulse Ox 95 95 93 O2 Delivery Room Air Room Air Room Air 12/27/17 12/27/17 12/27/17 08:00 08:41 11:00 Temp 97.7 97.7 Pulse 76 70 Resp 18 B/P (MAP) 138/77 152/62 (92) Pulse Ox 94 O2 Delivery Room Air Room Air Intake and Output 12/26/17 12/26/17 12/27/17 15:00 23:00 07:00 Intake Total 420 ml 300 ml 480 ml Balance 420 ml 300 ml 480 ml DEVONTE PIPER MD Dec 27, 2017 14:13
[2017-12-27 15:08] VITALS: BP 149/72
[2017-12-27 19:00] VITALS: BP 165/60
[2017-12-27] MEDS: SIMVASTATIN 20 MG TABLET PO SCH (21:08)
[2017-12-27] MEDS: LORazepam 0.5 MG TABLET PO SCH (21:08)
[2017-12-27 23:00] VITALS: BP 113/65
[2017-12-28 03:00] VITALS: BP 134/53
[2017-12-28 06:50] LABS: BASO # 0.1 x10^3/uL (0.0-0.2); BASO % 1 % (0-3); EOS # 0.4 x10^3/uL (0.0-0.7); EOS % 6 % (0-3); HEMATOCRIT 40.2 % (36.0-47.0); HEMOGLOBIN 13.7 g/dL (12.0-15.5); LYMPH # 2.9 x10^3/uL (1.0-4.8); LYMPH % 39 % (24-48); MEAN CORPUSCULAR HEMOGLOBIN 31 pg (25-35); MEAN CORPUSCULAR HGB CONC 34 g/dL (31-37); MEAN CORPUSCULAR VOLUME 90 fL (79-100); MONO # 0.9 x10^3/uL (0.0-1.1); MONO % 12 % (0-9); NEUT # 3.2 x10^3uL (1.8-7.7); NEUT % 43 % (31-73); PLATELET COUNT 201 x10^3/uL (140-400); RED BLOOD COUNT 4.47 x10^6/uL (3.50-5.40); RED CELL DISTRIBUTION WIDTH 13.6 % (11.5-14.5); WHITE BLOOD COUNT 7.5 x10^3/uL (4.0-11.0)
[2017-12-28 07:00] VITALS: BP 135/69
[2017-12-28 07:14] LABS: CALCIUM 9.8 mg/dL (8.5-10.1); CREATININE 1.2 mg/dL (0.6-1.0); GFR 42.4; POTASSIUM 4.1 mmol/L (3.5-5.1)
[2017-12-28] MEDS: ASPIRIN ENTERIC COATED 81 MG TABLET.DR. PO SCH (08:17)
[2017-12-28] MEDS: FUROSEMIDE 20 MG TABLET PO SCH (08:17)
[2017-12-28] MEDS: FAMOTIDINE 20 MG TABLET. PO SCH (08:18)
[2017-12-28] MEDS: LOSARTAN POTASSIUM 50 MG TABLET. PO SCH (08:19)
[2017-12-28 11:00] VITALS: BP 125/68
[2017-12-28] MEDS ORDERED: CLON1PAT TD (11:20)
--- NOTE | 2017-12-28 13:29 | PDOC3 ---
Discharge Summary [facility] Date of Admission: Dec 24, 2017 Discharge Date: Dec 28, 2017 Admitting Diagnosis accelerated hypertension weakness and debility Dehydration weakness and debility recent pneumonia. plan: fu with card cont corrent HTn meds, on clonidine patch, losartan talked to bryant at bedside, wants to go PP i talked to SW, who will fu, plan dc tmr cont PTOT History of Present Illness History of Present Illness weakness persists, out of bed well,, walks with a walker with PT well feels better than last night homemeds clonidine changed to patch, will watch vitals need snu placemetn, Vitals Vitals Vital Signs Date Time Temp Pulse Resp B/P (MAP) Pulse Ox O2 Delivery O2 Flow Rate FiO2 12/27/17 11:00 97.7 70 18 152/62 (92) 94 Room Air 97.7 Physical Exam CONSULTS card Brief Hospital Course Ms. Lo is a 87 old F, came for weakness, dizzy. was found HTN accelerated, dehydrated. Pt has been stable, able to walk with a walker with PTOT. dc to [facility]. dc time 35min. General: Alert, Oriented X3, Cooperative, Other (appears stated age) Heart: Normal S1, Normal S2 Lungs: Clear Abdomen: Normal bowel sounds, Soft Extremities: No edema, Normal pulses Skin: No rashes Patient History: Family history: Asthma Family history: Cardiovascular disease (situation) Family history: Gallbladder disease (situation) Family history: Hypertension (situation) No Family History of: Family history: Autoimmune disease (situation) Family history: Blood disorder (situation) Family history: Breast disease (situation) Family history: Cardiomyopathy (situation) Family history: Crohn's disease (situation) Family history: Depression (situation) Family history: Diabetes mellitus (situation) Family history: Epilepsy (situation) Family history: Gastrointestinal disease (situation) Family history: Obesity (situation) Family history: Schizophrenia (situation) Family history: Sickle cell trait (situation) Family history: Suicide (situation) Family history: neoplasm - trachea/bronchus/lung (situation) Family history: neoplasm - urinary organ (situation) Family history: neoplasm of skin (situation) Malignant hyperthermia Sleep apnea Disposition PP CONDITION AT DISCHARGE: Stable Scheduled Aspirin (Aspir-Low), 2 TAB PO BIDWMEALS, (Reported) Clonidine (Clonidine Tts-1), 1 PATCH TD WEEKLY Diltiazem Hcl (Diltiazem 24HR Cd), 120 MG PO QHS Furosemide (Furosemide), 1 TAB PO DAILY, (Reported) Lorazepam (Lorazepam), 0.5 MG PO HS, (Reported) Losartan Potassium (Losartan Potassium), 50 MG PO BID94, (Reported) Ranitidine Hcl (Zantac), 150 MG PO BID, (Reported) Simvastatin (Simvastatin), 20 MG PO HS, (Reported) Scheduled PRN Buspirone Hcl (Buspirone Hcl), 5 MG PO BID PRN for ANXIETY / AGITATION, ( Reported) Clonidine Hcl (Clonidine Hcl), 0.1 MG PO PRN PRN for HYPERTENSION, SEE COMMENTS, (Reported) DEVONTE PIPER MD Dec 28, 2017 13:29
== END 2017-12-28 14:50 | DRG 641 ==
LOC: ER 10:36 → 4 NORTH 13:45 → OBSVTOIN 13:58
PROVIDERS: ADMIT Internal Medicine; ATTEND Internal Medicine
DX: E86.0 Dehydration (principal); I10 Essential (primary) hypertension; R62.7 Adult failure to thrive; F41.9 Anxiety disorder, unspecified; E78.00 Pure hypercholesterolemia, unspecified; E78.5 Hyperlipidemia, unspecified; K21.9 Gastro-esophageal reflux disease without esophagitis; M19.90 Unspecified osteoarthritis, unspecified site; Z87.01 Personal history of pneumonia (recurrent); Z82.5 Family history of asthma and other chronic lower respiratory diseases; Z82.49 Family history of ischemic heart disease and other diseases of the circulatory system; Z86.73 Personal history of transient ischemic attack (TIA), and cerebral infarction without residual deficits; Z88.8 Allergy status to other drugs, medicaments and biological substances; Z98.49 Cataract extraction status, unspecified eye
CPT/HCPCS: 36415; 71045; 76770; 80048; 81001; 84484; 85025; 93005; 96360; 96361; G0379; J2405; J7040; 97116; 97530; 97535; 99285-25

== ENCOUNTER 2018-02-25 16:23 | Emergency (ER) | payer MEDICARE ==
[~2018-02-25] VITALS: Ht 154.9 cm; Wt 73.9 kg
[~2018-02-25 16:23] MED LIST changes: +ASPI81TA50 PO; +BUSP5TAB PO; +CLON0.1T PO; +CLON1PAT TD; +FURO20TA3 PO; +LORA0.5T PO; +LOSA50TA7 PO
[2018-02-25 18:27] LABS: BASO # 0.1 x10^3/uL (0.0-0.2); BASO % 1 % (0-3); EOS # 0.2 x10^3/uL (0.0-0.7); EOS % 2 % (0-3); HEMATOCRIT 37.4 % (36.0-47.0); HEMOGLOBIN 12.9 g/dL (12.0-15.5); LYMPH # 3.6 x10^3/uL (1.0-4.8); LYMPH % 36 % (24-48); MEAN CORPUSCULAR HEMOGLOBIN 31 pg (25-35); MEAN CORPUSCULAR HGB CONC 34 g/dL (31-37); MEAN CORPUSCULAR VOLUME 90 fL (79-100); MONO % 10 % (0-9); NEUT # 5.1 x10^3uL (1.8-7.7); NEUT % 51 % (31-73); PLATELET COUNT 210 x10^3/uL (140-400); RED BLOOD COUNT 4.14 x10^6/uL (3.50-5.40); RED CELL DISTRIBUTION WIDTH 13.8 % (11.5-14.5)
[2018-02-25] MEDS ORDERED: ONDANSETRON PF 4 MG/2 ML VIAL. IV ONE (18:30)
[2018-02-25] MEDS ORDERED: HYOSCYAMINE 0.125 MG TAB.RAPDIS PO ONE (18:30)
[2018-02-25 18:39] LABS: CALCIUM 10.2 mg/dL (8.5-10.1); CREATININE 1.2 mg/dL (0.6-1.0); GFR 42.4; POTASSIUM 3.8 mmol/L (3.5-5.1)
[2018-02-25 18:40] LABS: PROTHROMBIN TIME PATIENT 12.3 SEC (11.7-14.0)
[2018-02-25 18:44] LABS: ALBUMIN 3.9 g/dL (3.4-5.0); ALBUMIN/GLOBULIN RATIO 1.1 (1.0-1.7); TOTAL BILIRUBIN 0.6 mg/dL (0.2-1.0); TOTAL PROTEIN 7.4 g/dL (6.4-8.2)
[2018-02-25 19:00] LABS: BILIRUBIN,URINE NEGATIVE (NEG); CLARITY,URINE CLEAR; COLOR,URINE YELLOW; NITRITE,URINE NEGATIVE (NEG); PROTEIN,URINE NEGATIVE (NEG-TRACE); UROBILINOGEN,URINE 0.2 mg/dL (0.2 mg/dL)
[2018-02-25 19:06] LABS: BACTERIA,URINE 0 /HPF (0-FEW); RBC,URINE 0 /HPF (0-2); SQUAMOUS EPITHELIAL CELL,UR FEW /LPF; WBC,URINE 0 /HPF (0-4)
--- NOTE | 2018-02-25 19:22 | RAD ---
CT ABDOMEN PELVIS WO CONTRAST dated 02/25/2018 6:12 PM Indication:severe epigastric pain radiating to upper back, no priors, non contrast due to low gfr Comparison: No comparison is available. Technique: Helical noncontrast images were performed. One or more of the following individualized dose reduction techniques were utilized for this examination: 1. Automated exposure control 2. Adjustment of the mA and/or kV according to patient size 3. Use of iterative reconstruction technique Findings: There are some increased peripheral markings at the lung bases. There is probably some associated bronchiectasis in some areas. This likely indicates chronic fibrosis. There is a tiny low-attenuation area located superiorly in the liver, likely a cyst. A similar lesion is seen in the lateral segment of the left lobe. These measure less than 1 cm. No other liver parenchymal abnormality is seen. Spleen appears normal. Evaluation of the solid organs is somewhat limited by lack of IV contrast. The kidneys show no apparent mass or obstruction. The adrenal glands are not enlarged. The pancreas is relatively small, but appears normal. No retroperitoneal or mesenteric adenopathy is seen. There is no apparent abdominal soft tissue mass or inflammatory process. There is moderate stool through the colon. There is no evidence of bowel obstruction. Images through the pelvis show no apparent abnormality of the distal ureters or bladder. No pelvic or inguinal adenopathy is seen. There is no apparent pelvic mass or inflammatory process. A normal appendix is thought to be seen extending medially from the cecum. IMPRESSION: No apparent acute abnormality. Tiny low-density areas in the liver are nonspecific, but likely benign incidental lesions, unless the patient has a history of malignancy or cirrhosis. IMPRESSION: Electronically signed by: Steve Bridges Jr., MD (02/25/2018 7:18 PM) [facility]
[2018-02-25 19:46] VITALS: BP 200/89
[2018-02-25] MEDS ORDERED: HYOS0.1265 SL (20:24)
[2018-02-25] MEDS ORDERED: ONDA4TAB7 PO (20:24)
--- NOTE | 2018-02-25 20:24 | PHYS DOC ---
Past Medical History Past Medical History: High Cholesterol, Hypertension, TIA Additional Past Medical Histor: noncancerous breast lumps Past Surgical History: Other Additional Past Surgical Histo: left lobe thyroid, lumps bilateral breasts Alcohol Use: None Drug Use: None Adult General Chief Complaint Chief Complaint: NAUSEA/VOMITING/DIARRHA HPI HPI Patient is a 87 year old female who presents with upper abdominal pain that has been present for a while according to the patient but worse over the past 3- 4 days. She has had nausea and vomiting with this pain over the past 3-4 days. No association with fatty foods. She is able to tolerate liquids. No blood in the emesis, no diarrhea. No fevers. No bilious emesis. Describes the pain is achy, no lower abdominal pain, and no change with exertion. Review of Systems Review of Systems Constitutional: Denies fever or chills [] Eyes: Denies change in visual acuity, redness, or eye pain [] HENT: Denies nasal congestion or sore throat [] Respiratory: Denies cough or shortness of breath [] Cardiovascular: No chest pain, no palpitation[] GI: No bloody stools or diarrhea, see history of present illness [] : Denies dysuria or hematuria [] Musculoskeletal: Denies back pain or joint pain [] Integument: Denies rash or skin lesions [] Neurologic: Denies headache, focal weakness or sensory changes [] Endocrine: Denies polyuria or polydipsia [] All other systems were reviewed and found to be within normal limits, except as documented in this note. Current Medications Current Medications Current Medications Medications (Trade) Dose Ordered Sig/[facility] Start Time Stop Time Status Last Admin Dose Admin Hyoscyamine (Anaspaz) 0.125 mg ONCE ONCE 02/25/18 18:30 02/25/18 18:31 DC 02/25/18 18:49 0.125 MG Ondansetron HCl (Zofran) 4 mg 1X ONCE 02/25/18 18:30 02/25/18 18:31 DC 02/25/18 18:48 4 MG Allergies Allergies Allergies Coded Allergies Type Severity Reaction Last Updated Verified hydralazine Allergy Intermediate Swelling 12/24/17 Yes nifedipine Allergy Intermediate Swelling 12/24/17 Yes Physical Exam Physical Exam Constitutional: Well developed, well nourished, no acute distress, non-toxic appearance. [] HENT: Normocephalic, atraumatic, bilateral external ears normal, oropharynx moist, no oral exudates, nose normal. [] Eyes: PERRLA, EOMI, conjunctiva normal, no discharge. [] Neck: Normal range of motion, no tenderness, supple, no stridor. [] Cardiovascular:Heart rate regular rhythm, no murmur [] Lungs & Thorax: Bilateral breath sounds clear to auscultation [] Abdomen: Bowel sounds normal, soft, epigastric tenderness, no rebound, guarding , or rigidity. Patient is able to sit up without any difficulty, no masses, no pulsatile masses. [] Skin: Warm, dry, no erythema, no rash. [] Back: No tenderness, no CVA tenderness. [] Extremities: No tenderness, no cyanosis, no clubbing, ROM intact, no edema. [] Neurologic: Alert and oriented X 3, normal motor function, normal sensory function, no focal deficits noted. [] Psychologic: Affect normal, judgement normal, mood normal. [] Current Patient Data Vital Signs Vital Signs Date Time Temp Pulse Resp B/P (MAP) Pulse Ox O2 Delivery O2 Flow Rate FiO2 02/25/18 19:46 57 200/89 (126) 97 Room Air 02/25/18 17:50 97.5 20 97.5 Lab Values Laboratory Tests Test 02/25/18 18:15 02/25/18 18:30 White Blood Count 10.0 x10^3/uL (4.0-11.0) Red Blood Count 4.14 x10^6/uL (3.50-5.40) Hemoglobin 12.9 g/dL (12.0-15.5) Hematocrit 37.4 % (36.0-47.0) Mean Corpuscular Volume 90 fL (79-100) Mean Corpuscular Hemoglobin 31 pg (25-35) Mean Corpuscular Hemoglobin Concent 34 g/dL (31-37) Red Cell Distribution Width 13.8 % (11.5-14.5) Platelet Count 210 x10^3/uL (140-400) Neutrophils (%) (Auto) 51 % (31-73) Lymphocytes (%) (Auto) 36 % (24-48) Monocytes (%) (Auto) 10 % (0-9) H Eosinophils (%) (Auto) 2 % (0-3) Basophils (%) (Auto) 1 % (0-3) Neutrophils # (Auto) 5.1 x10^3uL (1.8-7.7) Lymphocytes # (Auto) 3.6 x10^3/uL (1.0-4.8) Monocytes # (Auto) 1.0 x10^3/uL (0.0-1.1) Eosinophils # (Auto) 0.2 x10^3/uL (0.0-0.7) Basophils # (Auto) 0.1 x10^3/uL (0.0-0.2) Prothrombin Time 12.3 SEC (11.7-14.0) Prothrombin Time INR 1.0 (0.8-1.1) Sodium Level 140 mmol/L (136-145) Potassium Level 3.8 mmol/L (3.5-5.1) Chloride Level 100 mmol/L (98-107) Carbon Dioxide Level 31 mmol/L (21-32) Anion Gap 9 (6-14) Blood Urea Nitrogen 21 mg/dL (7-20) H Creatinine 1.2 mg/dL (0.6-1.0) H Estimated GFR (Cockcroft-Gault) 42.4 BUN/Creatinine Ratio 18 (6-20) Glucose Level 95 mg/dL (70-99) Calcium Level 10.2 mg/dL (8.5-10.1) H Total Bilirubin 0.6 mg/dL (0.2-1.0) Aspartate Amino Transferase (AST) 25 U/L (15-37) Alanine Aminotransferase (ALT) 25 U/L (14-59) Alkaline Phosphatase 85 U/L (46-116) Troponin I Quantitative < 0.017 ng/mL (0.000-0.055) Total Protein 7.4 g/dL (6.4-8.2) Albumin 3.9 g/dL (3.4-5.0) Albumin/Globulin Ratio 1.1 (1.0-1.7) Lipase 70 U/L (73-393) L Urine Collection Type Unknown Urine Color Yellow Urine Clarity Clear Urine pH 7.0 Urine Specific [place] <=1.005 Urine Protein Negative mg/dL (NEG-TRACE) Urine Glucose (UA) Negative mg/dL (NEG) Urine Ketones (Stick) Negative mg/dL (NEG) Urine Blood Negative (NEG) Urine Nitrite Negative (NEG) Urine Bilirubin Negative (NEG) Urine Urobilinogen Dipstick 0.2 mg/dL (0.2 mg/dL) Urine Leukocyte Esterase Negative (NEG) Urine RBC 0 /HPF (0-2) Urine WBC 0 /HPF (0-4) Urine Squamous Epithelial Cells Few /LPF Urine Bacteria 0 /HPF (0-FEW) Laboratory Tests 02/25/18 18:15 Laboratory Tests 02/25/18 18:15 EKG EKG EKG obtained showed a normal sinus rhythm, axis is leftward at -8, no ST elevations, no old EKG readily available for comparison.[] Radiology/Procedures Radiology/Procedures CT scan of the abdomen shows no apparent acute abnormality. Tiny low density areas in the liver nonspecific but likely benign incidental lesions, Unless Patient has history of malignancy or cirrhosis.[] Course & Med Decision Making Course & Med Decision Making Pertinent Labs and Imaging studies reviewed. (See chart for details) ED course: Patient arrived, was placed in bed, tolerate exam well. Patient's blood pressure was noted to be elevated. Believe this to be due to discomfort as well as anxiety issues. This improved slightly with treating her pain. Patient also had her nausea treated by dressed with medication and had no episodes of emesis while in the emergency department. After the lab and x-ray findings returned, cut discussion was made with the patient and her family regarding these findings, all questions were answered. Adequate decision-making: No evidence of abdominal aortic aneurysm dissection, acute coronary syndrome, pancreatitis, nor an acute gallbladder issue. No evidence of urinary tract infection or pyelonephritis. Dragon Disclaimer Dragon Disclaimer This electronic medical record was generated, in whole or in part, using a voice recognition dictation system. Departure Departure Impression: Primary Impression: Abdominal pain Disposition: HOME, SELF-CARE Condition: GOOD Referrals: EDITH FLORES MD (PCP) Follow-up in 2 days Patient Instructions: Abdominal Pain, Nausea and Vomiting Additional Instructions: Drink plenty of fluids, frequent small sips. Avoid fatty foods, milk, and pepper. You may eat a carbohydrate rich diet such as bananas, rice, applesauce, and toast. No butter or margarine on the toast. You may use jelly or jam. Follow -up with your regular doctor in 2 days. Return to the ER if unable to tolerate any oral intake or any other concerns. Scripts Hyoscyamine Sulfate (LEVSIN-SL) 0.125 Mg Tab.subl 0.125 MG SL Q6HRS, #30 TAB Prov: MARIANNE HERNANDEZ DO 02/25/18 Ondansetron Hcl (ZOFRAN) 4 Mg Tablet 4 MG PO PRN TID PRN for VOMITING, #15 nausea/vomiting Prov: MARIANNE HERNANDEZ DO 02/25/18 Problem Qualifiers Primary Impression: Abdominal pain Abdominal location: epigastric Qualified Codes: R10.13 - Epigastric pain MARIANNE HERNANDEZ DO Feb 25, 2018 20:24
--- NOTE | 2018-02-26 02:20 | EKG ---
[facility] [address] [place] [address] Test Date: 2018-02-25 Test Time: 18:54:55 Pat Name: ZARA HERNÁNDEZ Department: Room: Gender: F Ticket Marker: : [id number] Requested By: MARIANNE HERNANDEZ Order Number: [id number] Reading MD: Measurements Intervals [place] Rate: 59 P: 54 TX: 164 QRS: -8 QRSD: 92 T: 20 QT: 450 QTc: 446 Interpretive Statements SINUS RHYTHM LEFTWARD AXIS OTHERWISE NORMAL ECG RI6.01 No previous ECG available for comparison
== END 2018-02-25 20:34 | disposition home or self-care (01) ==
LOC: ER 16:23
DX: R10.13 Epigastric pain (principal); R11.2 Nausea with vomiting, unspecified; I10 Essential (primary) hypertension; E78.00 Pure hypercholesterolemia, unspecified; Z86.73 Personal history of transient ischemic attack (TIA), and cerebral infarction without residual deficits; Z88.8 Allergy status to other drugs, medicaments and biological substances
CPT/HCPCS: 36415; 74176; 80053; 81001; 83690; 84484; 85025; 85610; 93005; 96374; 99285; J2405

== ENCOUNTER → 2018-03-15 | Outpatient (CLI) | payer MEDICARE ==
[2018-02-25 19:46] VITALS: BP 200/89
[~2018-03-15] MED LIST changes: +HYOS0.1265 SL; +ONDA4TAB7 PO
--- NOTE | 2018-03-15 12:41 | RAD ---
Limited abdominal ultrasound 03/15/2018 INDICATION: Abdominal pain COMPARISON STUDY: CT of the abdomen and pelvis February 25, 2018 Discussion: Ultrasound evaluation of the right upper quadrant performed. Static images are sent to PACS. The liver is normal in size measuring 12 cm longitudinally. No focal hepatic lesions seen. Portal venous flows in the normal direction. The gallbladder demonstrates multiple small stones within its dependent portion. No significant wall thickening is identified. No pericholecystic fluid is seen. The common bile duct measures 5 mm in diameter which is normal for age. The right kidney is normal in appearance measuring 8.1 cm in length. No hydronephrosis or focal renal lesion is seen. The pancreas is poorly visualized. IMPRESSION: Cholelithiasis. No sonographic evidence of acute cholecystitis is identified. Electronically signed by: Drew English MD (03/15/2018 12:38 PM) [id number]
== END | disposition home or self-care (01) ==
LOC: US 14:46
PROVIDERS: ATTEND Family Medicine
DX: K80.20 Calculus of gallbladder without cholecystitis without obstruction (principal)
CPT/HCPCS: 76705

== ENCOUNTER → 2018-06-11 | Outpatient (CLI) | payer MEDICARE ==
[2018-04-13 11:40] VITALS: BP 146/75
[~2018-06-11] MED LIST changes: +AZIT250T6 PO; -DILT120C80 PO; +DILT120C85 PO; +DILT30TA26 PO; +LOSA-73 PO; -LOSA50TA7 PO
--- NOTE | 2018-06-11 10:45 | RAD ---
CT CHEST WO CONTRAST Indication: F/U PNEUMONIA. ABNORMAL CHEST X-RAY
PREVIOUS Exposure: One or more of the following individualized dose reduction techniques were utilized for this examination: 1. Automated exposure control 2. Adjustment of the mA and/or kV according to patient size 3. Use of iterative reconstruction technique. Comparison: April 11, 2018 Contrast: None FINDINGS: Vascular structures: Limited exam without contrast. Aorta is calcified. No gross aneurysm. Lymph nodes:No significant enlargement Thyroid gland:Visualized aspect is unremarkable. Heart: Coronary artery calcifications Esophagus: Unremarkable Pleural spaces: No significant effusion Lungs: Mixed opacity in the anterior left upper lobe and at the lingula is again identified, and has slightly progressed since the previous exam. There are also some new nodular foci in the area. Infiltrate/opacity in the posterior aspect of the left lower lobe has overall slightly diminished. Pleural thickening and nodularity in the right upper lobe Trachea and central airways: Patent Spine: Mild degenerative spondylosis is again seen. Bones: No destructive process. Upper abdomen: Slices obtained through the upper most abdomen are limited by the noncontrast technique. No obvious acute findings. External Soft Tissue: No acute findings. Impression: 1. Mild worsening of mixed opacity in the anterior left upper lobe and lingula, with some increased nodular foci, raising concern for neoplastic etiology, although this still could be due to progressive inflammatory/infectious etiology. 2. Slight improvement in posterior left lower lobe and right upper lobe abnormalities. Electronically signed by: Danny Chávez MD (06/11/2018 10:40 AM) [facility]
== END | disposition home or self-care (01) ==
LOC: CT 09:33
PROVIDERS: ATTEND Family Medicine
DX: R91.8 Other nonspecific abnormal finding of lung field (principal); M47.894 Other spondylosis, thoracic region; I25.10 Atherosclerotic heart disease of native coronary artery without angina pectoris; I70.0 Atherosclerosis of aorta
CPT/HCPCS: 71250

== ENCOUNTER → 2018-07-11 | Day surgery (SDC) | payer MEDICARE ==
[~2018-07-11] MED LIST changes: +ALBUTEROL SULFATE 2.5 MG/3 ML NEBU. NEB PRN; +EPINEPHrine 1 MG/ML VIAL INJ PRN; +EPINEPHrine 1 MG/ML VIAL ONE; +HYDROmorphone 2 MG/ML VIAL IV PRN; +IV RINGERS,LACTATED 1000ML 1,000 ML IV SCH; +LIDOCAINE 1% Multi-Dose 20 ML VIAL. INJ PRN; +LIDOCAINE 1% Multi-Dose 20 ML VIAL. ONE; +LIDOCAINE 1% PF 2 ML VIAL. ID PRN; +LIDOCAINE 2% VISCOUS 100 ML BOTTLE. MM PRN; +LIDOCAINE 2% VISCOUS 100 ML BOTTLE. ONE; +LIDOCAINE 4% TOPICAL 50 ML SOLUTION. MM PRN; +LIDOCAINE 4% TOPICAL 50 ML SOLUTION. ONE; +MIDAZOLAM HCL/PF 2 MG/2 ML VIAL. IV PRN; +MORPHINE SULFATE 2 MG/ML VIAL. IV PRN; +OMEP40CA5 PO; +PROCHLORPERAZINE 10 MG/2 ML VIAL. IV PRN; +PROPOFOL 10 MG/ML (20ML) VIAL. IV ONE; +RANI-376 PO; -RANI150T21 PO; +fentaNYL PF VIAL 100 MCG/2 ML VIAL IV PRN
--- NOTE | 2018-07-11 14:13 | PDOC4 ---
PROCEDURE Procedure dictated no endo lesion no purulent secretion JJ ORDONEZ MD Jul 11, 2018 14:13
[2018-07-11 14:18] VITALS: BP 131/60
--- NOTE | 2018-07-11 15:33 | OP ---
DATE OF SURGERY: 07/11/2018 PROCEDURE: Bronchoscopy, bronchoalveolar lavage of left upper lobe. INDICATIONS: The patient with persistent infiltrate undergoing diagnostic bronchoscopy. Risks, benefits, and alternatives reviewed with the patient and daughter, they consented. SEDATION: Please see Anesthesia's notes. DESCRIPTION OF PROCEDURE: A timeout was performed prior to sedation. Vital signs and O2 saturations were maintained within normal limits throughout the procedure. The bronchoscope was passed through the right naris. The vocal cords were identified moving bilaterally without any dysfunction. The vocal cords were then anesthetized with a total of 5 mL of 4% lidocaine. Bronchoscope was then passed through the vocal cords into the proximal trachea, which was normal. The distal trachea was normal. The right and left segment and subsegments were well visualized with no endobronchial lesion. The scope was wedged into the left upper lobe and a lavage was performed, the return was clear. FINDINGS: 1. Normal vocal cords. 2. No endobronchial lesion. 3. No purulent secretions. PLAN: 1. The patient currently experiencing acute bronchitis. We will place on Levaquin 250 x 7 days, prednisone 30 mg x 5 days, albuterol p.r.n. 2. Follow up with Dr. Talavera for BAL results. JJ ORDONEZ MD DR: MEGAN/jodie JOB#: [id number] / [id number] EDITH Hudson MD
--- NOTE | 2018-07-13 17:08 | PATHOLOGY ---
Note [facility] Accession Number: [id number] TESTS RESULT FLAG UNITS REF RANGE LAB Clinician Provided Cytology Information No. of containers..01 Other (Miscellaneous) Source: [place] DIAGNOSIS: [place] NEGATIVE FOR MALIGNANT CELLS. FOCALLY REACTIVE BRONCHIAL EPITHELIAL CELLS AND PULMONARY MACROPHAGES PRESENT. Signed out by: Peter Go MD, Pathologist NPI- [id number] Performed by: Yvette Hathaway, Nonprofit Fundraiser ([facility]) Gross description: 01 14ML, PINK, CLOUDY /LCS FLAG LEGEND: L-Low Normal,H-High Normal,LL-Alert Low,HH-Alert High <-Panic Low,>-Panic High,A-Abnormal,AA-Critical Abnormal Performed at: [address] [place] [address] Sang Kyle MD, [address] [facility] [address] [place] [address] Peter Go MD, Specimen Comment: A courtesy copy of this report has been sent to Specimen Comment: [phone], . Specimen Comment: Report sent to Specimen Comment: A duplicate report has been generated due to demographic updates. Performed at: [address] [place] [address] [address], [place], [place] [id number] MD Sang Kyle MD Phone: [phone]
== END | disposition home or self-care (01) ==
LOC: SURG 11:58
PROVIDERS: ATTEND Internal Medicine Pulmonary Disease
DX: R91.8 Other nonspecific abnormal finding of lung field (principal); I10 Essential (primary) hypertension; Z87.01 Personal history of pneumonia (recurrent); Z87.19 Personal history of other diseases of the digestive system; Z98.890 Other specified postprocedural states; Z79.899 Other long term (current) drug therapy; Z88.8 Allergy status to other drugs, medicaments and biological substances
CPT/HCPCS: 31624; 87070; 87102; 87116; 87205; 88112; 94640; J2704; J7613; 31622; 87015; J0171